=== PATIENT | female | born 1960 | race Hispanic/Latino ===

== ENCOUNTER 2018-11-04 18:36 | Emergency (ER) | payer OTHER ==
[~2018-11-04] VITALS: Ht 152.4 cm; Wt 75.3 kg
== END 2018-11-04 19:31 | disposition home or self-care (01) ==
LOC: FSED 18:36
DX: R05 Cough (principal); J02.0 Streptococcal pharyngitis; J30.2 Other seasonal allergic rhinitis
CPT/HCPCS: 83518; 99283